=== PATIENT | male | born 1990 | race Caucasian/White ===

== ENCOUNTER 2022-08-31 23:02 | Emergency (ER) | payer SELFPAY ==
[~2022-08-31] VITALS: Ht 170.2 cm; Wt 81.6 kg
--- NOTE | 2022-08-31 23:30 | NUR ---
CALLED PATIENT'S NAME IN WAITING ROOM X3 FOR EVAL, NO RESPONSE.
[2022-08-31 23:43] VITALS: BP 134/71; TEMP 98.1
--- NOTE | 2022-08-31 23:43 | NUR ---
BIBSELF C/O REDNESS AND "INFECTION TO FINGERS COUPLE OF WEEKS"
[2022-08-31] MEDS ORDERED: CEPH500T PO (23:47)
--- NOTE | 2022-08-31 23:53 | NUR ---
Patient discharged to home in stable condition. RX Written and verbal after care instructions given. Patient verbalizes understanding of instruction.
== END 2022-08-31 23:54 | disposition home or self-care (01) ==
LOC: ER 23:08
DX: S61.351A Open bite of left index finger with damage to nail, initial encounter (principal); L03.012 Cellulitis of left finger; Z60.2 Problems related to living alone; Z79.899 Other long term (current) drug therapy